=== PATIENT | female | born 1990 | race African-American/Black ===

== ENCOUNTER 2018-06-29 13:37 | Emergency (ER) | payer OTHER ==
[2018-06-29 14:10] LABS: BASO % 0.1 % (0.0-1.0); EOS # 0.1 10^3/uL (0.0-0.50); EOS % 0.8 % (0.0-3.0); HEMATOCRIT 38.8 % (36.0-47.0); IMMATURE GRANULOCYTE % 0.3 % (0-3.0); LYMPH # 1.7 10^3/uL (1.5-6.5); LYMPH % 24.3 % (24.0-44.0); MEAN CORPUSCULAR HEMOGLOBIN 30.8 pg (27.0-33.0); MEAN CORPUSCULAR HGB CONC 33.5 g/dl (32.0-36.5); MEAN CORPUSCULAR VOLUME 91.9 fl (80.0-96.0); MONO # 0.4 10^3/uL (0.0-0.8); MONO % 5.7 % (0.0-5.0); NEUTROPHILS # 4.9 10^3/uL (1.8-7.7); NEUTROPHILS % 68.8 % (36.0-66.0); PLATELET COUNT, AUTOMATED 198 10^3/uL (150-450); RED BLOOD COUNT 4.22 10^6/uL (4.00-5.40); WHITE BLOOD COUNT 7.2 10^3/uL (4.0-10.0)
[2018-06-29 14:14] LABS: AMORPHOUS SEDIMENT RFX SMALL (NEGATIVE); KETONE, URINE AUTO RFX NEGATIVE (NEGATIVE); MUCUS, URINE RFX SMALL (NEGATIVE); NITRITE, URINE AUTO RFX NEGATIVE (NEGATIVE); RBC, URINE AUTO RFX 0 /HPF (0-3); SPECIFIC GRAVITY UR AUTO RFX 1.018 (1.002-1.035); SQUAM EPITHELIAL CELL UR AURFX 2 /HPF (0-6); WBC, URINE AUTO RFX 1 /HPF (0-3)
[2018-06-29 14:41] LABS: LEUKOCYTE ESTERASE UR AUTO RFX TRACE (NEGATIVE)
[2018-06-29 15:01] LABS: HCG, SERUM QUANTITATIVE 18040 MIU/ML
[2018-06-29 15:51] LABS: CHLAMYDIA DNA AMPLIFICATION NEGATIVE (NEGATIVE); GC DNA AMPLIFICATION NEGATIVE (NEGATIVE)
== END 2018-06-29 16:00 | disposition home or self-care (01) ==
LOC: M ED 13:37
DX: O20.0 Threatened abortion (principal); Z3A.01 Less than 8 weeks gestation of pregnancy
CPT/HCPCS: 76801

== ENCOUNTER 2018-07-04 14:41 | Day surgery (SDC) | payer OTHER ==
[2018-07-04] MEDS: NS 1,000 ML IV (14:49)
[2018-07-04 15:08] LABS: BASO % 0.1 % (0.0-1.0); EOS # 0.1 10^3/uL (0.0-0.50); EOS % 0.6 % (0.0-3.0); HEMATOCRIT 38.7 % (36.0-47.0); HEMOGLOBIN 13.3 g/dl (12.0-15.5); IMMATURE GRANULOCYTE % 0.3 % (0-3.0); LYMPH # 1.2 10^3/uL (1.5-6.5); MEAN CORPUSCULAR HEMOGLOBIN 31.4 pg (27.0-33.0); MEAN CORPUSCULAR HGB CONC 34.4 g/dl (32.0-36.5); MEAN CORPUSCULAR VOLUME 91.5 fl (80.0-96.0); MONO # 0.7 10^3/uL (0.0-0.8); MONO % 7.3 % (0.0-5.0); NEUTROPHILS # 7.5 10^3/uL (1.8-7.7); NEUTROPHILS % 78.7 % (36.0-66.0); PLATELET COUNT, AUTOMATED 193 10^3/uL (150-450); RED BLOOD COUNT 4.23 10^6/uL (4.00-5.40); RED CELL DISTRIBUTION WIDTH 12.2 % (11.5-14.5); WHITE BLOOD COUNT 9.5 10^3/uL (4.0-10.0)
[2018-07-04 16:00] LABS: ANION GAP 8 MEQ/L (8-16); BLOOD UREA NITROGEN 10 MG/DL (7-18); CALCIUM LEVEL 9.5 MG/DL (8.5-10.1); CARBON DIOXIDE LEVEL 27 MEQ/L (21-32); CHLORIDE LEVEL 103 MEQ/L (98-107); GLOMERULAR FILTRATION RATE > 60.0 (>60); GLUCOSE, FASTING 91 MG/DL (70-100); HCG, SERUM QUANTITATIVE 21481 MIU/ML; POTASSIUM SERUM 3.7 MEQ/L (3.5-5.1); SODIUM LEVEL 138 MEQ/L (136-145)
[2018-07-04] MEDS: ACETAMINOPHEN 650 MG SUPP PR (16:00)
[2018-07-04] MEDS: NS 500 ML IV (16:00)
[2018-07-04] MEDS ORDERED: ceFAZolin 1GM INJ (J0690 PER 500MG) As Ordered (19:59)
[2018-07-04] MEDS: ACETAMINOPHEN 650 MG SUPP As Ordered (20:18)
[2018-07-04] MEDS ORDERED: dexameTHASONE 4 MG/ML 1ML VIAL (J1100) As Ordered (20:23)
[2018-07-04] MEDS ORDERED: LIDOCAINE 2% INJ 100 MG/5 ML SDV (FOR ANES.) As Ordered (20:24)
[2018-07-04] MEDS ORDERED: ROCURONIUM BROMIDE 50 MG/5 ML VIAL As Ordered ×2 (20:24→21:01)
[2018-07-04] MEDS ORDERED: fentaNYL 100 MCG/2 ML INJECTION (J3010) As Ordered ×2 (20:24→20:34)
[2018-07-04] MEDS ORDERED: MIDAZOLAM INJ 2 MG/2 ML VIAL (J2250) As Ordered (20:24)
[2018-07-04] MEDS ORDERED: PROPOFOL 200 MG/20 ML VIAL As Ordered (20:24)
[2018-07-04] MEDS: BUPIVACAINE HCL 0.5% 10 ML VIAL As Ordered (20:32)
[2018-07-04] MEDS ORDERED: ONDANSETRON 4MG/2ML VIAL (J2405) As Ordered (20:47)
[2018-07-04] MEDS ORDERED: NEOSTIGMINE 10 MG/10 ML VIAL (J2710) As Ordered (21:06)
[2018-07-04] MEDS ORDERED: GLYCOPYRROLATE INJ 0.2 MG/ML 2 ML VIAL As Ordered (21:06)
[2018-07-04] MEDS ORDERED: IBUPROFEN 800 MG TAB PO (23:45)
[2018-07-05] MEDS: KETOROLAC 30 MG/ML VIAL (J1885) IV (01:13)
== END 2018-07-05 09:30 | disposition home or self-care (01) ==
LOC: M OBS 07-05 09:34 → M SDC 07-05 09:34 → M OBS 15:29 → M ED 14:41 → M SDC 15:00 → M OBS 23:14
DX: O00.90 Unspecified ectopic pregnancy without intrauterine pregnancy (principal)
CPT/HCPCS: 59151

== ENCOUNTER → 2018-07-04 | Outpatient (CLI) | payer OTHER ==
[2018-07-04 13:30] LABS: HCG, SERUM QUANTITATIVE 20149 MIU/ML
== END ==
LOC: M LAB 11:27
DX: O20.0 Threatened abortion (principal)

== ENCOUNTER → 2018-07-04 | Outpatient (CLI) | payer OTHER | LOC: M RAD 13:00 | DX: O00.80 Other ectopic pregnancy without intrauterine pregnancy (principal); R10.2 Pelvic and perineal pain ==

== ENCOUNTER → 2018-07-24 | Outpatient (CLI) | payer OTHER ==
[~2018-07-24] MED LIST: PRENTAB7 PO
--- NOTE | 2018-07-24 10:08 | REP ---
Clinical: Known recent ectopic with continued elevated HCG levels. Technique: Transabdominal and transvaginal first trimester obstetrical ultrasound with color Doppler evaluation. Comparison: 07/04/2018 Findings: Anteverted uterus measures 10.3 x 5.2 x 5.7 cm and again demonstrates an empty, presumed pseudogestational sac measuring 16 x 9 x 32 mm which appears essentially unchanged from prior examination. The right ovary measures 3.9 x 1.9 x 3.5 cm; RI 0.62 and is without evidence for torsion, but continues to demonstrate a 1.7 x 1.8 x 1.8 cm stable septated cyst likely representing corpus luteum or dominant follicle. The left ovary measures 2.1 x 1.6 x 1.7 cm; RI 0.67 and is without evidence for torsion. A complex echogenic mass with central cystic component in the left adnexa is again identified and measures approximately 2.6 x 2.6 x 2.0 cm appearing unchanged from prior examination. Impression: 1. Heterogeneous anteverted uterus with presumed pseudogestational sac/empty gestational sac similar to 07/04/2018. 2. No intrauterine identified. 3. Bilateral ovaries remain stable including 1.8 cm septated cyst in the right ovary which may represent corpus luteum or dominant follicle. 4. Stable echogenic mass with central cystic component in the left adnexa essentially unchanged from prior examination. Differential diagnosis includes ectopic and dermoid and should be correlated with findings on prior surgery which was performed subsequent to the previous ultrasound which demonstrated ectopic. Electronically Signed by Carlos Dawkins MD 07/24/2018 09:59 A
== END ==
LOC: M RAD 08:59
PROVIDERS: ATTEND Obstetrics & Gynecology
DX: N83.201 Unspecified ovarian cyst, right side (principal)

== ENCOUNTER 2018-07-31 11:29 | Day surgery (SDC) | payer OTHER ==
[~2018-07-31] VITALS: Ht 175.3 cm; Wt 93.0 kg
[2018-07-31] MEDS ORDERED: SODIUM CHLORIDE 0.9% 1000ML IV ONE (11:45)
[2018-07-31] MEDS ORDERED: ACETAMINOPHEN 650 MG SUPP PR ONE (11:45)
[2018-07-31] MEDS ORDERED: NS 1,000 ML IV SCH (11:45)
[2018-07-31 11:57] LABS: HEMATOCRIT 37.3 % (36.0-47.0); HEMOGLOBIN 12.5 g/dl (12.0-15.5); MEAN CORPUSCULAR HEMOGLOBIN 31.1 pg (27.0-33.0); MEAN CORPUSCULAR HGB CONC 33.5 g/dl (32.0-36.5); MEAN CORPUSCULAR VOLUME 92.8 fl (80.0-96.0); PLATELET COUNT, AUTOMATED 181 10^3/uL (150-450); RED BLOOD COUNT 4.02 10^6/uL (4.00-5.40); WHITE BLOOD COUNT 5.6 10^3/uL (4.0-10.0)
[2018-07-31 12:43] LABS: BLOOD UREA NITROGEN 7 MG/DL (7-18); CARBON DIOXIDE LEVEL 28 MEQ/L (21-32); CHLORIDE LEVEL 106 MEQ/L (98-107); GLOMERULAR FILTRATION RATE > 60.0 (>60); GLUCOSE, FASTING 94 MG/DL (70-100); HCG, SERUM QUANTITATIVE 5934 MIU/ML; POTASSIUM SERUM 4.1 MEQ/L (3.5-5.1); SODIUM LEVEL 141 MEQ/L (136-145)
[2018-07-31] MEDS ORDERED: LIDOCAINE 2% INJ 100 MG/5 ML SDV (FOR ANES.) As Ordered ONE (13:31)
[2018-07-31] MEDS ORDERED: KETOROLAC 60 MG/2 ML VIAL (J1885) As Ordered ONE (13:31)
[2018-07-31] MEDS ORDERED: fentaNYL 100 MCG/2 ML INJECTION (J3010) As Ordered ONE (13:31)
[2018-07-31] MEDS ORDERED: dexameTHASONE 4 MG/ML 1ML VIAL (J1100) As Ordered ONE (13:31)
[2018-07-31] MEDS ORDERED: PROPOFOL 200 MG/20 ML VIAL As Ordered ONE (13:31)
[2018-07-31] MEDS ORDERED: ONDANSETRON 4MG/2ML VIAL (J2405) As Ordered ONE (13:31)
[2018-07-31] MEDS ORDERED: MIDAZOLAM INJ 2 MG/2 ML VIAL (J2250) As Ordered ONE (13:31)
[2018-07-31] MEDS ORDERED: ACETAMINOPHEN 650 MG SUPP As Ordered ONE (14:24)
[2018-07-31] MEDS ORDERED: ONDANSETRON 4MG/2ML VIAL (J2405) IV PRN (15:45)
[2018-07-31] MEDS ORDERED: HYDROMORPHONE HCL 0.5 MG/ 0.5 ML SYRINGE (J1170 PER 1) IV PRN (15:45)
[2018-07-31] MEDS ORDERED: PERCOCET 5MG/325MG TAB PO PRN (15:45)
[2018-07-31] MEDS ORDERED: LR 1,000 ML IV SCH (15:45)
[2018-07-31] MEDS ORDERED: fentaNYL 100 MCG/2 ML INJECTION (J3010) IV PRN (15:45)
[2018-07-31 16:25] VITALS: BP 158/82
[2018-07-31] MEDS ORDERED: KETOROLAC 30 MG/ML VIAL (J1885) IV SCH (20:00)
== END 2018-07-31 16:34 | disposition home or self-care (01) ==
LOC: M SDC 11:29 → EDSTATUS 14:46 → M SDC 16:34
PROVIDERS: ATTEND Obstetrics & Gynecology
DX: O02.1 Missed abortion (principal)
CPT/HCPCS: 36415; 59820; 80048; 84702; 85027; 86850; 86900; 86901; 88305; J0690; J1100; J1885; J2250; J2405; J3010